=== PATIENT | female | born 1970 | race Caucasian/White ===

== ENCOUNTER 2020-09-15 15:33 | Emergency (ER) | payer MEDICAID ==
[~2020-09-15] VITALS: Ht 160 cm; Wt 104.0 kg
[2020-09-15] MEDS ORDERED: FLUORESCEIN SODIUM 1MG/STRIP RIGHTEYE ONE (16:45)
[2020-09-15] MEDS ORDERED: ERYT1OIN6 EACHEYE (17:29)
[2020-09-15] MEDS ORDERED: ACET-2708 MT (17:29)
[2020-09-15] MEDS ORDERED: IBUP-2029 MT (17:29)
[2020-09-15] MEDS ORDERED: IBUPROFEN 800MG TABLET PO ONE (18:00)
[2020-09-15 18:19] VITALS: BP 128/70
== END 2020-09-15 18:19 | disposition home or self-care (01) ==
LOC: ER 15:33
DX: S05.01XA Injury of conjunctiva and corneal abrasion without foreign body, right eye, initial encounter (principal); F41.9 Anxiety disorder, unspecified; I10 Essential (primary) hypertension; W18.39XA Other fall on same level, initial encounter; Y93.89 Activity, other specified; Y92.89 Other specified places as the place of occurrence of the external cause; Y99.8 Other external cause status; Z98.890 Other specified postprocedural states; Z79.899 Other long term (current) drug therapy
CPT/HCPCS: 99283